=== PATIENT | female | born 1945 | race Caucasian/White ===

== ENCOUNTER → 2024-12-27 11:58 | Outpatient (REF) | payer MEDICARE, SELFPAY ==
[2024-12-27 13:01] LABS: % Basophils 0.8 % (0-2); % Eosinophils 1.9 % (0-6); % Immature Granulocytes 0.4 % (0-0.5); % Lymphocytes 15.2 % (20.5-51.1); % Monocytes 13.3 % (1.7-9.3); % Neutrophils 68.4 % (42.2-75.2); Absolute Basophils 0.1 10^3/uL (0-0.2); Absolute Eosinophils 0.2 10^3/uL (0-0.7); Absolute Lymphocytes 1.4 10^3/uL (1.2-3.4); Absolute Monocytes 1.2 10^3/uL (0.1-0.6); Absolute Neutrophils 6.1 10^3/uL (1.4-6.5); Hematocrit 38.2 % (37.0-47.0); Hemoglobin 13.3 g/dL (12.0-16.0); Mean Corp Hgb Conc. 34.8 g/dL (33.0-37.0); Mean Corpuscular Hgb 30.9 pg (27.0-31.0); Mean Corpuscular Volume 88.6 fL (81.0-99.0); Mean Platelet Volume 11.9 fL (7.4-10.4); Nucleated Red Blood Cells % 0 %; Platelet Count 120 10^3/uL (130-400); Red Blood Cell Count 4.31 10^6/uL (4.20-5.40); Red Cell Dist. Width 14.6 % (11.5-14.5)
[2024-12-27 13:22] LABS: ALT (SGPT) 25 U/L (0-35); AST (SGOT) 46 U/L (14-36); Albumin 3.7 g/dl (3.5-5.0); Alkaline Phosphatase 99 U/L (38-126); Blood Urea Nitrogen 6 mg/dl (7-17); Calcium 9.5 mg/dl (8.4-10.2); Carbon Dioxide 25 mmol/L (22-30); Chloride 101 mmol/L (98-107); Glucose 104 mg/dl (70-99); HDL Cholesterol 65 mg/dl; LDL Cholesterol, Calculated 95 mg/dl; Sodium 135 mmol/L (135-145); Total Bilirubin 1.7 mg/dl (0.2-1.3); Total Cholesterol 175 mg/dl (50-199); Total Protein 6.5 g/dl (6.3-8.2); Triglyceride 76 mg/dl (10-149); Very Low Density Lipoprotein 15 mg/dl (0-30); eGFR > 60.00
[2024-12-27 13:37] LABS: Vitamin D, 25-OH*** 25.8 ng/mL (30-80)
[2024-12-27 14:50] LABS: Total Thyroxine 1.06 ug/dl (5.5-11.0)
== END ==
LOC: REG 11:58
PROVIDERS: ATTENDING PHYSICIAN Family Medicine
DX: E11.9 Type 2 diabetes mellitus without complications (principal); I10 Essential (primary) hypertension; E03.9 Hypothyroidism, unspecified; E78.5 Hyperlipidemia, unspecified; E55.9 Vitamin D deficiency, unspecified; R53.83 Other fatigue; D64.9 Anemia, unspecified; R79.89 Other specified abnormal findings of blood chemistry
CPT/HCPCS: 36415; 80053; 80061; 82306; 83036; 84436; 84443; 84480; 85025

== ENCOUNTER → 2025-05-21 13:04 | Outpatient (REF) | payer MEDICARE, SELFPAY ==
[2025-05-21 15:14] LABS: % Basophils 0.7 % (0-2); % Eosinophils 1.7 % (0-6); % Immature Granulocytes 0.5 % (0-0.5); % Lymphocytes 17.7 % (20.5-51.1); % Monocytes 9.8 % (1.7-9.3); % Neutrophils 69.6 % (42.2-75.2); Absolute Basophils 0.1 10^3/uL (0-0.2); Absolute Eosinophils 0.1 10^3/uL (0-0.7); Absolute Lymphocytes 1.5 10^3/uL (1.2-3.4); Absolute Monocytes 0.8 10^3/uL (0.1-0.6); Absolute Neutrophils 5.9 10^3/uL (1.4-6.5); Hematocrit 39.3 % (37.0-47.0); Hemoglobin 13.5 g/dL (12.0-16.0); Mean Corp Hgb Conc. 34.4 g/dL (33.0-37.0); Mean Corpuscular Hgb 29.2 pg (27.0-31.0); Mean Corpuscular Volume 84.9 fL (81.0-99.0); Mean Platelet Volume 13.4 fL (7.4-10.4); Nucleated Red Blood Cells % 0 %; Platelet Count 97 10^3/uL (130-400); Red Blood Cell Count 4.63 10^6/uL (4.20-5.40); Red Cell Dist. Width 14.4 % (11.5-14.5); White Blood Cell Count 8.4 10^3/uL (4.8-10.8)
[2025-05-21 15:30] LABS: Blood Urea Nitrogen 11 mg/dl (7-17); Calcium 9.8 mg/dl (8.4-10.2); Carbon Dioxide 21 mmol/L (22-30); Chloride 106 mmol/L (98-107); Glucose 222 mg/dl (70-99); Potassium 4.4 mmol/L (3.5-5.1); Sodium 137 mmol/L (135-145); eGFR > 60.00
[2025-05-21 15:39] LABS: NT-proBNP 42.9 pg/ml
== END ==
LOC: RAD 13:04
PROVIDERS: ATTENDING PHYSICIAN Nurse Practitioner; FAMILY PHYSICIAN Family Medicine
DX: I50.33 Acute on chronic diastolic (congestive) heart failure (principal)
CPT/HCPCS: 36415; 80048; 83880; 85025; 93306

== ENCOUNTER → 2025-06-20 14:55 | Outpatient (REF) | payer MEDICARE, SELFPAY ==
[2025-06-20 16:01] LABS: Blood Urea Nitrogen 12 mg/dl (7-17); Calcium 9.2 mg/dl (8.4-10.2); Carbon Dioxide 26 mmol/L (22-30); Chloride 104 mmol/L (98-107); Glucose 155 mg/dl (70-99); Potassium 4.0 mmol/L (3.5-5.1); Sodium 136 mmol/L (135-145); eGFR > 60.00
== END ==
LOC: REG 14:55
PROVIDERS: ATTENDING PHYSICIAN Internal Medicine; FAMILY PHYSICIAN Family Medicine
DX: I50.32 Chronic diastolic (congestive) heart failure (principal)
CPT/HCPCS: 36415; 80048

== ENCOUNTER → 2025-07-24 12:46 | Outpatient (REF) | payer MEDICARE, SELFPAY ==
[2025-07-24 13:37] LABS: Urine Character Clear (Clear)
[2025-07-24 14:16] LABS: Glycohemoglobin (HgbA1c) 9.2 % (4.0-5.6)
[2025-07-24 14:28] LABS: Microalbumin, Random Urine 0.7 mg/dl (0.6-1.7)
[2025-07-24 14:36] LABS: Urine Squamous Cell >30 /LPF (Few)
[2025-07-24 14:37] LABS: Urine White Cell 50-60 /HPF (0-5)
[2025-07-24 14:38] LABS: Urine Red Blood Cell None Seen /HPF (0-2)
[2025-07-24 14:51] LABS: TSH 1.05 uIU/ml (0.47-4.68)
[2025-07-25 21:29] LABS: Total T3 (Sendout) 123 ng/dL (80-200)
== END ==
LOC: REG 12:46
PROVIDERS: ATTENDING PHYSICIAN Family Medicine
DX: E11.9 Type 2 diabetes mellitus without complications (principal); E03.9 Hypothyroidism, unspecified; R79.89 Other specified abnormal findings of blood chemistry
CPT/HCPCS: 36415; 81003; 81015; 82043; 83036; 84439; 84443; 84480

== ENCOUNTER → 2025-09-22 12:21 | Outpatient (REF) | payer MEDICARE, SELFPAY ==
[2025-09-22 13:23] LABS: Hematocrit 42.3 % (37.0-47.0); Hemoglobin 13.2 g/dL (12.0-16.0); Mean Corp Hgb Conc. 31.2 g/dL (33.0-37.0); Mean Corpuscular Volume 86.3 fL (81.0-99.0); Nucleated Red Blood Cells % 0 %; Platelet Count 101 10^3/uL (130-400); Red Cell Dist. Width 15.5 % (11.5-14.5)
[2025-09-22 13:39] LABS: ALT (SGPT) 15 U/L (0-35); AST (SGOT) 31 U/L (14-36); Albumin 3.9 g/dl (3.5-5.0); Alkaline Phosphatase 91 U/L (38-126); Blood Urea Nitrogen 10 mg/dl (7-17); Calcium 9.2 mg/dl (8.4-10.2); Carbon Dioxide 23 mmol/L (22-30); Chloride 108 mmol/L (98-107); Glucose 143 mg/dl (70-99); HDL Cholesterol 56 mg/dl; LDL Cholesterol, Calculated 74 mg/dl; Potassium 4.2 mmol/L (3.5-5.1); Sodium 139 mmol/L (135-145); Total Protein 6.9 g/dl (6.3-8.2); Very Low Density Lipoprotein 16 mg/dl (0-30); eGFR > 60.00
[2025-09-22 13:54] LABS: Free T3 3.57 pg/ml (2.77-5.27)
[2025-09-22 14:03] LABS: Glycohemoglobin (HgbA1c) 8.4 % (4.0-5.9)
[2025-09-22 14:07] LABS: TSH 1.01 uIU/ml (0.47-4.68)
== END ==
LOC: REG 12:21
PROVIDERS: ATTENDING PHYSICIAN Family Medicine
DX: E11.9 Type 2 diabetes mellitus without complications (principal); I10 Essential (primary) hypertension; E03.9 Hypothyroidism, unspecified; E78.5 Hyperlipidemia, unspecified; I25.10 Atherosclerotic heart disease of native coronary artery without angina pectoris; R79.89 Other specified abnormal findings of blood chemistry
CPT/HCPCS: 36415; 80053; 80061; 83036; 84436; 84443; 84481; 85025

== ENCOUNTER → 2025-10-01 13:50 | Outpatient (REF) | payer MEDICARE, SELFPAY | LOC: PAVMRI 13:50 | PROVIDERS: ATTENDING PHYSICIAN Family Medicine | DX: M48.061 Spinal stenosis, lumbar region without neurogenic claudication (principal) | CPT/HCPCS: 72148 ==